=== PATIENT | male | born 1980 | race Caucasian/White ===

== ENCOUNTER 2018-05-23 17:08 | Emergency (ER) | payer MEDICARE ==
[~2018-05-23] VITALS: Ht 172.7 cm; Wt 68.0 kg
[2018-05-23 17:10] VITALS: BP_SYST 128
[2018-05-23] MEDS ORDERED: NACL 0.9% 1,000 ML IV ONE (17:17)
[2018-05-23] MEDS ORDERED: KETOROLAC TROMETHAMINE 30 MG VIAL IVP ONE (17:30)
[2018-05-23] MEDS ORDERED: ONDANSETRON HCL 4 MG/2 ML VIAL IVP ONE (17:30)
[2018-05-23 17:45] LABS: EOSINOPHILS # (AUTO) 0.6 K/uL (0.0-0.4); LYMPHOCYTES # (AUTO) 1.4 K/uL (1.0-5.5); MEAN CORPUSCULAR HGB CONC 32 % (32-36); MONOCYTES # (AUTO) 0.2 K/uL (0.0-1.0)
[2018-05-23 17:47] LABS: BASOPHILS % (AUTO) 1.1 % (0.0-2.0); EOSINOPHILS % (AUTO) 14.3 % (0.0-4.0); HEMATOCRIT 43.6 % (36-54); HEMOGLOBIN 14.1 g/dL (14.0-18.0); LYMPHOCYTES % (AUTO) 34.9 % (20.5-51.5); MEAN CORPUSCULAR HEMOGLOBIN 31 pg (27-31); MEAN CORPUSCULAR VOLUME 96 fL (79.0-98.0); MONOCYTES % (AUTO) 4.5 % (1.7-9.3); NEUTROPHILS # (AUTO) 1.9 K/uL (1.8-7.7); NEUTROPHILS % (AUTO) 45.2 % (40.0-70.0); PLATELET COUNT (AUTO) 477 K/uL (130-430); RED BLOOD CELL COUNT(AUTO) 4.53 MIL/uL (4.2-6.2); RED CELL DISTRIBUTION WIDTH 13.1 % (9.0-15.0); WHITE BLOOD COUNT (AUTO) 4.1 K/uL (4.8-10.8)
[2018-05-23 17:50] LABS: CALCIUM 8.7 mg/dL (8.4-11.0); CREATININE 0.93 mg/dL (0.55-1.30); POTASSIUM 3.6 mmol/L (3.5-5.1)
[2018-05-23 17:54] LABS: INR 0.9 (0.80-1.20); PROTHROMBIN TIME 9.3 SECS (9.5-12.5)
[2018-05-23 17:55] LABS: ALBUMIN 3.1 g/dL (3.4-4.8); TOTAL BILIRUBIN 0.5 mg/dL (0.0-1.0)
== END 2018-05-23 18:40 | disposition left against medical advice (07) ==
LOC: SED 17:08
DX: G89.29 Other chronic pain (principal); N50.82 Scrotal pain; F17.200 Nicotine dependence, unspecified, uncomplicated; Z53.20 Procedure and treatment not carried out because of patient's decision for unspecified reasons; Z85.47 Personal history of malignant neoplasm of testis
CPT/HCPCS: 36415; 76870; 80053; 83690; 82150; 85025; 85610; 85730; 96374; 96375; 99285; J1885; J2405; J7030

== ENCOUNTER 2020-06-10 09:27 | Emergency (ER) | payer MEDICAID, SELFPAY ==
[~2020-06-10] VITALS: Ht 170.2 cm; Wt 81.6 kg
[2020-06-10 09:27] VITALS: BP_SYST 127
--- NOTE | 2020-06-10 09:27 | NUR ---
BROUGHT IN BY [facility] FROM [facility], PLACED IN ROOM #8 AND TRIAGED. REPORT GIVEN TO SONA. DR CHILDS AT BEDSIDE FOR EVALUATION
--- NOTE | 2020-06-10 09:40 | NUR ---
Pt came to ER for anxiety. Pt resting in [facility] tachycardic, MD TALA to [facility]
[2020-06-10] MEDS ORDERED: OLANZapine 10 MG TAB.RAPDIS PO ONE (09:45)
--- NOTE | 2020-06-10 09:50 | NUR ---
ER at bedside examining patient.
[2020-06-10 09:52] LABS: BASOPHILS # (AUTO) 0.1 K/uL (0.0-0.2); EOSINOPHILS % (AUTO) 0.1 % (0.0-4.0); HEMATOCRIT 42.4 % (36-54); HEMOGLOBIN 14.5 g/dL (14.0-18.0); LYMPHOCYTES # (AUTO) 1.6 K/uL (1.0-5.5); LYMPHOCYTES % (AUTO) 21.5 % (20.5-51.5); MEAN CORPUSCULAR HEMOGLOBIN 31 pg (27-31); MEAN CORPUSCULAR HGB CONC 34 % (32-36); MEAN CORPUSCULAR VOLUME 91 fL (79.0-98.0); MONOCYTES # (AUTO) 0.5 K/uL (0.0-1.0); MONOCYTES % (AUTO) 6.6 % (1.7-9.3); NEUTROPHILS # (AUTO) 5.4 K/uL (1.8-7.7); NEUTROPHILS % (AUTO) 70.8 % (40.0-70.0); PLATELET COUNT (AUTO) 402 K/uL (130-430); RED BLOOD CELL COUNT(AUTO) 4.65 MIL/uL (4.2-6.2); RED CELL DISTRIBUTION WIDTH 13.7 % (9.0-15.0); WHITE BLOOD COUNT (AUTO) 7.6 K/uL (4.8-10.8)
[2020-06-10 10:07] LABS: ANION GAP 10 (5-15); CALCIUM 8.3 mg/dL (8.4-11.0); CHLORIDE 100 mmol/L (98-107); CREATININE 0.96 mg/dL (0.55-1.30); GFR AFRICAN AMERICAN 113 mL/min (>90); GLUCOSE 85 mg/dL (70-99); POTASSIUM 3.6 mmol/L (3.5-5.1); SODIUM SERUM 136 mmol/L (136-145); UREA NITROGEN, BLOOD 16 mg/dL (8-21)
[2020-06-10 10:15] LABS: ALCOHOL, BLOOD 8 mg/dL (<10)
[2020-06-10 10:17] LABS: ACETAMINOPHEN < 1 ug/mL (1-30)
[2020-06-10 10:55] LABS: BARBITURATE, URINE NEGATIVE (NEG <=200); BENZODIAZEPINE, URINE NEGATIVE (NEG <=150); CANNABINOID, URINE NEGATIVE (NEG <=50); COCAINE, URINE NEGATIVE (NEG <=150); METHAMPHETAMINES SCREEN,URINE NEGATIVE (NEG <=500); OPIATE, URINE NEGATIVE (NEG <=100); PHENCYCLIDINE SCREEN,URINE NEGATIVE (NEG <=25); UR TRICYCLIC ANTIDEPRESSANTS NEGATIVE (NEG <=300); URINE AMPHETAMINE NEGATIVE (NEG <=500); URINE METHADONE NEGATIVE (NEG <=200); URINE OXYCODONE SCREEN NEGATIVE (NEG <=100); URINE PROPOXYPHENE SCREEN NEGATIVE (NEG <=300)
--- NOTE | 2020-06-10 11:00 | NUR ---
Pt asleep in [facility] no distress noted.
[2020-06-10] MEDS ORDERED: chlordiazePOXIDE HCL 25 MG CAPSULE PO ONE (12:00)
--- NOTE | 2020-06-10 12:17 | NUR ---
Pt resting in gurney at this time, encouraged to increase intake of fluids, drinking water.
--- NOTE | 2020-06-10 13:00 | NUR ---
Upon receiving discharge education pt states voices in head are telling him to harm himself.
--- NOTE | 2020-06-10 13:40 | NUR ---
ORDER PLACED FOR TELEPSYCH CONSULT
--- NOTE | 2020-06-10 14:25 | NUR ---
Pt spoke with Tele health MD, report to follow
--- NOTE | 2020-06-10 15:01 | NUR ---
DR CHILDS SPEAKING WITH JORGE SOLOMON, MOTHER OF PT, PER PTS REQUEST.
--- NOTE | 2020-06-10 16:47 | NUR ---
Report received from telepsych doctor, pt to placed on 5150 for DTS
--- NOTE | 2020-06-10 17:25 | NUR ---
Spoke with Dr. Alves stated he will try to stop by tonight in about 1-2 hours
--- NOTE | 2020-06-10 18:10 | NUR ---
Dr Cruz evaluated pt and states he is ok to be discharged.
[2020-06-10 18:23] VITALS: BP_SYST 117
--- NOTE | 2020-06-10 18:24 | NUR ---
Patient given written and verbal discharge instructions and verbalizes understanding. ER MD discussed with patient the results and treatment provided. Patient in stable condition. ID arm band removed. No Rx of given. Patient educated on pain management and to follow up with PMD. Pain Scale 0/10. Opportunity for questions provided and answered. Medication side effect fact sheet provided.
== END 2020-06-10 18:23 | disposition home or self-care (01) ==
LOC: SED 09:27
DX: R06.02 Shortness of breath (principal); R44.0 Auditory hallucinations; F15.10 Other stimulant abuse, uncomplicated; F10.10 Alcohol abuse, uncomplicated; Z20.828 Contact with and (suspected) exposure to other viral communicable diseases
CPT/HCPCS: 36415; 71045; 80048; 80307; 84484; 85025; 85379; 87426; 93005; 99285; G0480; G0481; G0482

== ENCOUNTER 2020-12-08 06:59 | Emergency (ER) | payer MEDICAID, SELFPAY ==
[~2020-12-08] VITALS: Ht 170.2 cm; Wt 65.8 kg
[2020-12-08 07:08] VITALS: BP_SYST 112
[2020-12-08 07:34] LABS: BASOPHILS # (AUTO) 0.1 K/uL (0.0-0.2); BASOPHILS % (AUTO) 0.9 % (0.0-2.0); EOSINOPHILS % (AUTO) 0.1 % (0.0-4.0); HEMATOCRIT 43.9 % (36-54); LYMPHOCYTES # (AUTO) 1.4 K/uL (1.0-5.5); MEAN CORPUSCULAR HEMOGLOBIN 31 pg (27-31); MEAN CORPUSCULAR HGB CONC 34 % (32-36); MEAN CORPUSCULAR VOLUME 90 fL (79.0-98.0); MONOCYTES # (AUTO) 0.6 K/uL (0.0-1.0); MONOCYTES % (AUTO) 9.2 % (1.7-9.3); NEUTROPHILS # (AUTO) 4.7 K/uL (1.8-7.7); NEUTROPHILS % (AUTO) 69.8 % (40.0-70.0); PLATELET COUNT (AUTO) 465 K/uL (130-430); RED CELL DISTRIBUTION WIDTH 13.7 % (9.0-15.0); WHITE BLOOD COUNT (AUTO) 6.8 K/uL (4.8-10.8)
[2020-12-08 07:42] LABS: ANION GAP 9 (5-15); CALCIUM 8.7 mg/dL (8.4-11.0); CHLORIDE 100 mmol/L (98-107); CREATININE 0.99 mg/dL (0.55-1.30); GLUCOSE 89 mg/dL (70-99); POTASSIUM 3.2 mmol/L (3.5-5.1); SODIUM SERUM 137 mmol/L (136-145); UREA NITROGEN, BLOOD 9 mg/dL (8-21)
[2020-12-08 07:46] LABS: INR 1.1 (0.80-1.20)
[2020-12-08 07:49] LABS: ALANINE AMINOTRANSFERASE 35 U/L (12-78); ALBUMIN 3.8 g/dL (3.4-4.8); ALCOHOL, BLOOD < 3 mg/dL (<10); ASPARTATE AMINOTRANSFERASE 32 U/L (10-37); GFR AFRICAN AMERICAN 109 mL/min (>90); TOTAL BILIRUBIN 1.6 mg/dL (0.0-1.0)
[2020-12-08 08:49] VITALS: BP_SYST 112
== END 2020-12-08 08:50 | disposition home or self-care (01) ==
LOC: SED 06:59
DX: R06.02 Shortness of breath (principal); Z20.822 Contact with and (suspected) exposure to COVID-19
CPT/HCPCS: 36415; 71045; 80053; 82550; 82553; 83880; 84484; 85025; 85379; 85610; 85730; 87426; 93005; 99285; G0482

== ENCOUNTER 2020-12-10 10:48 | Emergency (ER) | payer MEDICAID, SELFPAY ==
[~2020-12-10] VITALS: Ht 170.2 cm; Wt 70.3 kg
[2020-12-10 10:53] VITALS: BP_SYST 118
[2020-12-10 11:18] LABS: BASOPHILS # (AUTO) 0.1 K/uL (0.0-0.2); BASOPHILS % (AUTO) 1.4 % (0.0-2.0); EOSINOPHILS % (AUTO) 0.7 % (0.0-4.0); HEMATOCRIT 41.7 % (36-54); HEMOGLOBIN 14.5 g/dL (14.0-18.0); LYMPHOCYTES # (AUTO) 1.8 K/uL (1.0-5.5); LYMPHOCYTES % (AUTO) 24.3 % (20.5-51.5); MEAN CORPUSCULAR HEMOGLOBIN 31 pg (27-31); MEAN CORPUSCULAR HGB CONC 35 % (32-36); MEAN CORPUSCULAR VOLUME 89 fL (79.0-98.0); MONOCYTES # (AUTO) 0.7 K/uL (0.0-1.0); MONOCYTES % (AUTO) 9.1 % (1.7-9.3); NEUTROPHILS # (AUTO) 4.7 K/uL (1.8-7.7); NEUTROPHILS % (AUTO) 64.5 % (40.0-70.0); PLATELET COUNT (AUTO) 441 K/uL (130-430); RED BLOOD CELL COUNT(AUTO) 4.68 MIL/uL (4.2-6.2); RED CELL DISTRIBUTION WIDTH 13.5 % (9.0-15.0); WHITE BLOOD COUNT (AUTO) 7.3 K/uL (4.8-10.8)
[2020-12-10 11:30] LABS: CALCIUM 8.6 mg/dL (8.4-11.0); CREATININE 1.18 mg/dL (0.55-1.30); POTASSIUM 3.5 mmol/L (3.5-5.1)
[2020-12-10 11:36] LABS: ALBUMIN 3.5 g/dL (3.4-4.8)
[2020-12-10 11:38] LABS: INR 1.1 (0.80-1.20); PROTHROMBIN TIME 11.1 SECS (9.5-12.5)
[2020-12-10 11:58] LABS: CKMB RELATIVE INDEX 2.8 (0.0-2.9); CREATINE KINASE MB 9.4 ng/mL (0-3.6)
[2020-12-10 12:31] VITALS: BP_SYST 118
== END 2020-12-10 12:31 | disposition home or self-care (01) ==
LOC: SED 10:48
DX: R06.02 Shortness of breath (principal)
CPT/HCPCS: 36415; 71045; 80053; 82550; 82553; 84484; 85025; 85610-TC; 85730-TC; 93005; 99285

== ENCOUNTER 2020-12-10 13:37 | Emergency (ER) | payer MEDICAID ==
[~2020-12-10] VITALS: Ht 177.8 cm; Wt 65.8 kg
[2020-12-10 13:54] VITALS: BP_SYST 160
[2020-12-10] MEDS ORDERED: LORazepam 1 MG TABLET PO ONE (14:30)
[2020-12-10 16:09] VITALS: BP_SYST 160
[2020-12-11] MEDS ORDERED: IPRATROPIUM/ALBUTEROL SULFATE 3 ML AMPUL.NEB (DUONEB) ONE (03:40)
== END 2020-12-10 16:09 | disposition home or self-care (01) ==
LOC: SED 13:37
DX: R06.02 Shortness of breath (principal); F41.9 Anxiety disorder, unspecified; R07.9 Chest pain, unspecified
CPT/HCPCS: 71045; 93005; 99283